=== PATIENT | female | born 1995 | race Caucasian/White ===

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

== ENCOUNTER 2017-01-02 13:25 | Emergency (ER) | payer BC ==
[2017-01-02 14:00] VITALS: TEMP 97.9
[2017-01-02 14:50] VITALS: RESP 16
[2017-01-02 14:52] VITALS: BP 110/86; PULSE 90; O2SAT 100
== END 2017-01-02 14:49 | disposition home or self-care (01) ==
LOC: ED 13:25
DX: R11.2 Nausea with vomiting, unspecified (principal); R19.7 Diarrhea, unspecified; Z86.018 Personal history of other benign neoplasm; N92.6 Irregular menstruation, unspecified; N64.59 Other signs and symptoms in breast
CPT/HCPCS: 84703; 99283; 99284

== ENCOUNTER 2018-07-12 11:05 | Emergency (ER) | payer SELFPAY ==
[2018-07-12] MEDS ORDERED: ALBUTEROL NEB SOL 2.5MG/3ML 1 VIAL SOL NEB PRN (11:21)
[2018-07-12] MEDS ORDERED: SOLUMEDROL 125 MG/2 ML 125 MG/2 ML PDS IV ONE (11:22)
[2018-07-12] MEDS ORDERED: ALBUTEROL NEB SOL 2.5MG/3ML 1 VIAL SOL ONE (11:55)
[2018-07-12] MEDS ORDERED: SOLUMEDROL 125 MG/2 ML 125 MG/2 ML PDS ONE (11:55)
[2018-07-12 11:58] LABS: CARBON DIOXIDE 24.9 mEq/L (21-32); CREATININE 1.02 mg/dl (0.60-1.00); POTASSIUM 3.5 mMol/L (3.5-5.1)
[2018-07-12 11:59] LABS: ALBUMIN 3.8 gm/dl (3.4-5.0); BILIRUBIN,TOTAL 0.4 mg/dl (0.2-1.0); TOTAL PROTEIN 6.9 gm/dl (6.4-8.2)
[2018-07-12] MEDS ORDERED: ALBUTEROL/IPRATROPIUM 1 VIAL SOL ONE (12:15)
[2018-07-12] MEDS ORDERED: ALBUTEROL/IPRATROPIUM 1 VIAL SOL INH ONE (12:15)
[2018-07-12] MEDS ORDERED: AZITHROMYCIN 250 MG TAB ONE (12:26)
[2018-07-12] MEDS ORDERED: AZITHROMYCIN 250 MG TAB PO ONE (12:27)
[2018-07-12 12:33] VITALS: RESP 18
[2018-07-12 13:11] VITALS: BP 121/81; PULSE 89; O2SAT 96
== END 2018-07-12 13:00 | disposition home or self-care (01) | DRG 195 ==
LOC: ED 11:05
DX: J18.1 Lobar pneumonia, unspecified organism (principal); Z87.891 Personal history of nicotine dependence; R06.2 Wheezing
CPT/HCPCS: 36415; 71046; 80053; 96374; 99283; 99284; J2930; J7613; A9270-GY

== ENCOUNTER 2019-01-05 04:38 | Emergency (ER) | payer SELFPAY ==
[2019-01-05 05:26] LABS: BASOPHILS % (AUTO) 1 % (0-3); EOSINOPHILS % (AUTO) 4 % (0-9); HEMATOCRIT 45 % (35-47); HEMOGLOBIN 14.9 gm/dl (12.0-15.5); LYMPHOCYTES % (AUTO) 38.9 % (10-50); MEAN CORPUSCULAR HEMOGLOBIN 29.7 pg (27.0-32.0); MEAN CORPUSCULAR VOLUME 90 fL (81-99); MONOCYTES % (AUTO) 8.2 % (0-12)
[2019-01-05 05:37] VITALS: RESP 20; TEMP 98.1; O2SAT 100
[2019-01-05 05:37] LABS: APPEARANCE,URINE Slightly Cloudy; BILIRUBIN,URINE NEGATIVE (NEGATIVE); COLOR,URINE Yellow; GLUCOSE, URINE (UA) NEGATIVE (NEGATIVE); KETONES,URINE NEGATIVE (NEGATIVE); LEUKOCYTE ESTERASE ,URINE NEGATIVE (NEGATIVE); NITRATE,URINE NEGATIVE (NEGATIVE); OCCULT BLOOD,URINE 3+ (NEG-TRACE); PH,URINE 6.5; UROBILINOGEN,URINE 0.2 (0.2-1.0 EU)
[2019-01-05 05:44] LABS: BILIRUBIN,TOTAL 0.3 mg/dl (0.2-1.0); CALCIUM 9.1 mg/dl (8.5-10.1); CARBON DIOXIDE 27.3 mEq/L (21-32); CREATININE 0.87 mg/dl (0.60-1.00); POTASSIUM 3.6 mMol/L (3.5-5.1); TOTAL PROTEIN 7.3 gm/dl (6.4-8.2)
[2019-01-05 05:53] LABS: BACTERIA NEGATIVE (< 1+); CRYSTALS NEGATIVE (0-3 AVE/HPF); RBC,URINE 0-3 (0-3AV/HPF); WBC,URINE 0-2 (0-5AV/HPF)
[2019-01-05 06:01] VITALS: BP 103/69; PULSE 56
[2019-01-05] MEDS ORDERED: KETOROLAC TROMETHAMINE 30 MG/ML SOL IV ONE (06:20)
[2019-01-05] MEDS ORDERED: KETOROLAC TROMETHAMINE 30 MG/ML SOL ONE (06:21)
== END 2019-01-05 06:30 | disposition home or self-care (01) | DRG 392 ==
LOC: ED 04:38
DX: R10.33 Periumbilical pain (principal); R11.2 Nausea with vomiting, unspecified
CPT/HCPCS: 74176; 80053; 81001; 84703; 85025; 96374; 99283; 99284; J1885